=== PATIENT | male | born 1955 | race Caucasian/White ===

== ENCOUNTER 2017-11-01 11:10 | Emergency (ER) | payer BC, MEDICAID, MEDICARE, OTHER, SELFPAY ==
[~2017-11-01] VITALS: Ht 180.3 cm; Wt 88.2 kg
[2017-11-01] MEDS ORDERED: MORPHINE SULFATE 4 MG/ML, 1ML IVPush ONE (12:30)
[2017-11-01] MEDS ORDERED: MORPHINE SULFATE 4 MG/ML, 1ML ONE (12:45)
[2017-11-01 12:53] LABS: BASOPHILS # (AUTO) 0.09 x10^3/uL (0-0.1); BASOPHILS % (AUTO) 1 % (0-1); EOSINOPHILS # (AUTO) 0.14 x10^3/uL (0-0.4); EOSINOPHILS % (AUTO) 2 % (1-7); LYMPHOCYTES # (AUTO) 2.86 x10^3/uL (1-3.4); LYMPHOCYTES % (AUTO) 29 % (22-44); MD NO; MEAN CORPUSCULAR HEMOGLOBIN 31.8 pg (27.5-34.5); MEAN CORPUSCULAR HGB CONC 33.7 g/dL (33.2-36.2); MEAN CORPUSCULAR VOLUME 94.3 fL (81-97); MEAN PLATELET VOLUME 8.2 fL (7.4-10.4); MONOCYTES # (AUTO) 1.02 x10^3/uL (0.2-0.8); MONOCYTES % (AUTO) 10 % (2-9); NEUTROPHILS # (AUTO) 5.71 x10^3/uL (1.8-6.8); NEUTROPHILS % (AUTO) 58 % (42-75); PLATELET COUNT 228 x10^3/uL (130-400); RED BLOOD COUNT 5.47 x10^6/uL (4.38-5.82); RED CELL DISTRIBUTION WIDTH 13.4 % (9.4-14.8)
[2017-11-01 13:05] LABS: ALANINE AMINOTRANSFERASE 30 U/L (12-78); ANION GAP 6 mmol/L (5-15); CHLORIDE 106 mmol/L (98-107); CREATININE 0.96 mg/dL (0.7-1.3)
[2017-11-01 13:08] LABS: ALKALINE PHOSPHATASE 60 U/L (45-117); BILIRUBIN,TOTAL 0.4 mg/dL (0.2-1.0); TOTAL PROTEIN 7.5 g/dL (6.4-8.2)
[2017-11-01 13:19] LABS: INTERNATIONAL NORMALIZED RATIO 1.03 (0.93-1.1); PROTHROMBIN TIME 10.7 Seconds (9.6-11.5)
[2017-11-01] MEDS ORDERED: HYDROmorphone 1 MG/ML, 1ML IV ONE (14:30)
[2017-11-01] MEDS ORDERED: HYDROmorphone 2 MG/ML, 1ML ONE ×3 (14:48→16:26)
[2017-11-01 14:51] LABS: MICROSCOPIC NOT IND
[2017-11-01 14:56] LABS: CULTURE INDICATED? NO
[2017-11-01] MEDS ORDERED: OMNIPAQUE 350 MG/ML, 100ML BOTTLE ONE (15:00)
[2017-11-01 16:10] VITALS: BP 138/79
[2017-11-01] MEDS ORDERED: OXYcodone/APAP 10/325MG TABLET ONE (16:26)
[2017-11-01] MEDS ORDERED: OXYcodone/APAP 10/325MG TABLET PO ONE (16:30)
== END 2017-11-01 16:42 | disposition home or self-care (01) ==
LOC: ED 12:49
DX: K40.30 Unilateral inguinal hernia, with obstruction, without gangrene, not specified as recurrent (principal); K21.9 Gastro-esophageal reflux disease without esophagitis; I25.10 Atherosclerotic heart disease of native coronary artery without angina pectoris
CPT/HCPCS: 36415; 74177; 80053; 81003; 83605; 85025; 85610; 85730; 96374; 96375; 99285; J1170; Q9967

== ENCOUNTER 2017-11-15 12:00 | Day surgery (SDC) | payer MEDICARE ==
[2017-11-13 12:25] VITALS: BP 159/90
[~2017-11-15] VITALS: Ht 180.3 cm; Wt 90.0 kg
[~2017-11-15 12:00] MED LIST: ASPI-650 PO; DOCU-131 PO; LISI-170 PO; METO25TA35 PO; NITR2.5C3 PO; RANI150T8 PO
[2017-11-15] MEDS ORDERED: LACTATED RINGERS 1,000 ML IV SCH (12:42)
[2017-11-15] MEDS ORDERED: LIDOCAINE 1%, 2ML SQ PRN (13:00)
[2017-11-15] MEDS ORDERED: ACETAMINOPHEN 325 MG TABLET PO PRN (13:30)
[2017-11-15] MEDS ORDERED: hydrALAzine 20 MG/ML, 1ML IV PRN (13:30)
[2017-11-15] MEDS ORDERED: PROMETHAZINE 12.5 MG SUPP PR PRN (13:30)
[2017-11-15] MEDS ORDERED: OXYcodone 5 MG/5 ML ORAL.SOL UDC PO PRN (13:30)
[2017-11-15] MEDS ORDERED: LABETALOL 5MG/ML, 20ML IV PRN (13:30)
[2017-11-15] MEDS ORDERED: MEPERIDINE/PF 25MG/0.5ML IVPush PRN (13:30)
[2017-11-15] MEDS ORDERED: MIDAZOLAM 1 MG/ML, 2ML ONE (13:46)
[2017-11-15] MEDS ORDERED: FENTANYL PF 250 MCG/5ML ONE (13:46)
[2017-11-15] MEDS ORDERED: BUPIVACAINE/PF 0.5% ONE (14:27)
[2017-11-15] MEDS ORDERED: EPINEPHRINE 1 MG/ML, 1ML ONE (14:27)
[2017-11-15] MEDS ORDERED: ROCURONIUM 10 MG/ML,10ML ONE (16:40)
[2017-11-15] MEDS ORDERED: DEXAMETHASONE 4 MG/ML, 1ML ONE ×2 (16:40)
[2017-11-15] MEDS ORDERED: ONDANSETRON 2MG/ML, 2ML ONE ×2 (16:40→17:04)
[2017-11-15] MEDS ORDERED: CEFAZOLIN 1,000 MG ONE ×2 (16:40)
[2017-11-15] MEDS ORDERED: KETOROLAC 30 MG/1 ML ONE (16:40)
[2017-11-15] MEDS ORDERED: PROPOFOL 10 MG/ML, 20ML ONE (16:40)
[2017-11-15] MEDS ORDERED: FENTANYL PF 100 MCG/2ML ONE ×2 (17:04→17:42)
[2017-11-15] MEDS ORDERED: ACETAMINOPHEN 650 MG/20.3 ML UDC ONE (17:04)
[2017-11-15] MEDS ORDERED: OXYcodone 5 MG/5 ML ORAL.SOL UDC ONE (17:05)
[2017-11-15] MEDS: ONDANSETRON 2MG/ML, 2ML IVPush PRN ×2 (17:06→17:07)
[2017-11-15] MEDS ORDERED: hydrALAzine 20 MG/ML, 1ML ONE (17:07)
[2017-11-15] MEDS: FENTANYL PF 100 MCG/2ML IV PRN ×3 (17:10→17:43)
[2017-11-15] MEDS ORDERED: HYDROmorphone 2 MG/ML, 1ML ONE (17:23)
[2017-11-15] MEDS: HYDROmorphone 1 MG/ML, 1ML IV PRN ×3 (17:25→17:40)
== END 2017-11-15 19:00 | disposition home or self-care (01) ==
LOC: OUT 12:00
PROVIDERS: ATTEND Surgery
DX: K40.20 Bilateral inguinal hernia, without obstruction or gangrene, not specified as recurrent (principal); K42.9 Umbilical hernia without obstruction or gangrene; I25.10 Atherosclerotic heart disease of native coronary artery without angina pectoris; K21.9 Gastro-esophageal reflux disease without esophagitis; I10 Essential (primary) hypertension; N40.0 Benign prostatic hyperplasia without lower urinary tract symptoms; Z79.82 Long term (current) use of aspirin; Z88.0 Allergy status to penicillin; Z98.890 Other specified postprocedural states
CPT/HCPCS: 49585; 49650; 93005; C1781; J0171; J0360; J0690; J1100; J1170; J1885; J2250; J2405; J2704; J3010; J3490; J7120; S2900

== ENCOUNTER → 2019-12-28 | Outpatient (CLI) | payer MEDICAID, MEDICARE ==
[~2019-12-28] MED LIST changes: -NITR2.5C3 PO; +RANI-467 PO; -RANI150T8 PO; +[UNRECOGNIZED DRUG - CODE] PO
== END | disposition home or self-care (01) ==
LOC: CFH 08:35
PROVIDERS: ATTEND Internal Medicine Cardiovascular Disease
DX: I08.3 Combined rheumatic disorders of mitral, aortic and tricuspid valves (principal); I25.2 Old myocardial infarction
CPT/HCPCS: 93306